=== PATIENT | female | born 1940 | race Caucasian/White ===

== ENCOUNTER 2017-11-07 11:39 | Inpatient (IN) ==
[2017-11-07] MEDS ORDERED: LABETALOL 20 MG/4 ML SYRINGE IV STA ×2 (12:12→14:00)
[2017-11-07 12:23] LABS: Basophils # 0.1 10*3/uL (0.0-0.2); Basophils % 0.8 % (0.0-0.8); Eosinophils # 0.2 10*3/uL (0.0-0.87); Eosinophils % 3.6 % (0.00-10.9); Hematocrit 36.8 VOL% (35.7-47.0); Hemoglobin 12.3 GM/DL (12.0-16.0); Immature Granulocytes % 0.5 %; Immature Granulocytes Absolute 0.03 #; Lymphocytes # 1.8 10*3/uL (1.4-4.0); Lymphocytes % 29.9 % (21.3-54.2); Mean Corpuscular HGB Conc 33.4 GM/DL (32-36); Mean Corpuscular Hemoglobin 32 PG (27-34); Mean Corpuscular Volume 94.4 FL (87-102); Mean Platelet Volume 9.8 FL (9.6-12.0); Monocytes # 0.6 10*3/uL (0.11-0.8); Neutrophils # 3.5 10*3/uL (1.4-7.4); Neutrophils % 56.2 % (38.7-73.9); Platelet Count 231 T/CUMM (130-400); Red Cell Distribution Width 13.2 % (9.3-17.3); White Blood Count 6.1 T/CUMM (4-12)
[2017-11-07 12:31] LABS: PT Patient Result 10.1 SECS
[2017-11-07 12:37] LABS: Apearance,Urine CLEAR (Clear); Bilirubin,Urine Negative (Negative); Blood, Urine Small mg/dL (Negative); Glucose,Urine (UA) Negative (Negative); Ketones,Urine Negative (Negative); Mucus,Urine Occasional /LPF (Occasional); Nitrite,Urine Negative (Negative); Protein,Urine Negative; RBC,Urine 1 /HPF (0-4); Squamous Epithelial Cell,Urine Occasional /HPF (0-10); Urine Color Straw (Yellow); Urine Specific Gravity 1.008 (1.001-1.035); Urine Urobilinogen < 2.0 EU/DL (0.2-1.0); WBC,Urine <1 /HPF (0-6)
[2017-11-07] MEDS ORDERED: LABETALOL 20 MG/4 ML SYRINGE IV ONE ×2 (12:44→14:02)
[2017-11-07 12:52] LABS: Albumin 3.7 G/DL (3.4-5.0); Bilirubin,Total 0.4 MG/DL (0.2-1.0); Calcium 8.8 MG/DL (8.5-10.1); Osmolality,Calculated 274.8 MOS/KG (273-304); Potassium 4.2 MMOL/L (3.5-5.1); Total Protein 7.2 G/DL (6.4-8.3)
[2017-11-07] MEDS ORDERED: ACETAMINOPHEN 500 MG TABLET PO STA (13:15)
[2017-11-07] MEDS ORDERED: ACETAMINOPHEN 500 MG TABLET ONE (13:16)
[2017-11-07] MEDS ORDERED: amLODIPine 5 MG TABLET PO STA (13:41)
[2017-11-07] MEDS ORDERED: amLODIPine 5 MG TABLET ONE (13:45)
[2017-11-07] MEDS ORDERED: ONDANSETRON 4 MG/2 ML VIAL IV PRN (16:32)
[2017-11-07] MEDS ORDERED: ACETAMINOPHEN 325 MG TABLET PO PRN (16:32)
[2017-11-07] MEDS: LISINOPRIL 10 MG TABLET PO SCH (18:50)
[2017-11-07] MEDS ORDERED: cloNIDine 0.1 MG TABLET PO SCH (21:00)
[2017-11-07] MEDS: AZITHROMYCIN INJ 250 MG in SODIUM CHLORIDE 0.9% 150 ML IV SCH (22:04)
[2017-11-07] MEDS: DOCUSATE SODIUM 100 MG CAPSULE PO SCH (22:06)
[2017-11-07] MEDS: traZODone 50 MG TABLET PO PRN (22:54)
[2017-11-08] MEDS: LEVOTHYROXINE 112 MCG TABLET PO SCH (06:14)
[2017-11-08 06:53] LABS: Calcium 8.2 MG/DL (8.5-10.1); Potassium 3.8 MMOL/L (3.5-5.1); Thyroid Stimulating Hormone 0.887 uIU/ml (0.358-3.74)
[2017-11-08] MEDS: PANTOPRAZOLE 40 MG TABLET PO SCH (09:19)
[2017-11-08] MEDS: LISINOPRIL 10 MG TABLET PO SCH (09:19)
[2017-11-08] MEDS: DOCUSATE SODIUM 100 MG CAPSULE PO SCH ×2 (09:19→21:02)
[2017-11-08] MEDS: LORATADINE 10 MG TABLET PO SCH (09:19)
[2017-11-08] MEDS: ASPIRIN EC 81 MG TABLET PO SCH (09:19)
[2017-11-08] MEDS ORDERED: BUTALBITAL/ACETAMIN/CAFFEINE 50-325-40 MG TABLET PO PRN (15:09)
[2017-11-08 16:25] LABS: Folate 14.2 NG/ML (5.4-24.0)
[2017-11-08] MEDS: AZITHROMYCIN INJ 250 MG in SODIUM CHLORIDE 0.9% 150 ML IV SCH (20:58)
[2017-11-08] MEDS: traZODone 50 MG TABLET PO PRN (21:02)
[2017-11-08] MEDS: AMITRIPTYLINE 25 MG TABLET PO SCH (21:02)
[2017-11-09] MEDS: LEVOTHYROXINE 112 MCG TABLET PO SCH (06:45)
[2017-11-09] MEDS: LISINOPRIL 10 MG TABLET PO SCH (09:02)
[2017-11-09] MEDS: LORATADINE 10 MG TABLET PO SCH (09:02)
[2017-11-09] MEDS: DOCUSATE SODIUM 100 MG CAPSULE PO SCH ×2 (09:02→21:50)
[2017-11-09] MEDS: ASPIRIN EC 81 MG TABLET PO SCH (09:02)
[2017-11-09] MEDS: PANTOPRAZOLE 40 MG TABLET PO SCH (09:02)
[2017-11-09] MEDS ORDERED: AZITHROMYCIN INJ 250 MG in SODIUM CHLORIDE 0.9% 250 ML IV SCH (20:00)
[2017-11-09] MEDS: traZODone 50 MG TABLET PO PRN (21:49)
[2017-11-09] MEDS: MEMANTINE 5 MG TABLET PO SCH (21:50)
[2017-11-09] MEDS: AMITRIPTYLINE 25 MG TABLET PO SCH (21:50)
[2017-11-10] MEDS: LEVOTHYROXINE 112 MCG TABLET PO SCH (06:17)
[2017-11-10] MEDS: ASPIRIN EC 81 MG TABLET PO SCH (08:52)
[2017-11-10] MEDS: DOCUSATE SODIUM 100 MG CAPSULE PO SCH (08:52)
[2017-11-10] MEDS: MEMANTINE 5 MG TABLET PO SCH (08:52)
[2017-11-10] MEDS: LISINOPRIL 10 MG TABLET PO SCH (08:53)
[2017-11-10] MEDS: LORATADINE 10 MG TABLET PO SCH (08:53)
[2017-11-10] MEDS: PANTOPRAZOLE 40 MG TABLET PO SCH (08:53)
[2017-11-10 12:05] VITALS: BP 110/51
== END 2017-11-10 13:00 | disposition home or self-care (01) | DRG 69 ==
LOC: N.EDINP 11:39 → N.ED 11:39 → N.EDINP 16:00 → N.5E 16:29
PROVIDERS: ADMIT Internal Medicine; ATTEND Internal Medicine

== ENCOUNTER 2022-11-23 11:47 | Observation (INO) ==
[2022-11-23] MEDS ORDERED: SODIUM CHLORIDE 0.9% 1,000 ML IV STA (12:39)
[2022-11-23 13:20] LABS: Basophils % 0.6 % (0.0-0.8); Eosinophils # 0.2 10*3/uL (0.0-0.87); Eosinophils % 3.7 % (0.00-10.9); Hematocrit 30.8 VOL% (35.7-47.0); Hemoglobin 10.2 GM/DL (12.0-16.0); Immature Granulocytes % 0.3 %; Immature Granulocytes Absolute 0.02 #; Lymphocytes # 1.5 10*3/uL (1.4-4.0); Lymphocytes % 23.8 % (21.3-54.2); Mean Corpuscular HGB Conc 33.1 GM/DL (32-36); Mean Corpuscular Volume 93.3 FL (87-102); Mean Platelet Volume 11.7 FL (9.6-12.0); Monocytes # 0.6 10*3/uL (0.11-0.8); Monocytes % 9.1 % (1.7-12.7); Neutrophils % 62.5 % (38.7-73.9); Platelet Count 177 T/CUMM (130-400); Red Cell Distribution Width 12.7 % (9.3-17.3); White Blood Count 6.3 T/CUMM (4-12)
[2022-11-23 13:27] LABS: Bilirubin,Urine Negative (Negative); Blood, Urine Negative (Negative); Glucose,Urine (UA) Negative (Negative); Ketones,Urine Negative (Negative); Nitrite,Urine Negative (Negative); Protein,Urine Negative (Negative); RBC,Urine <1 /HPF (0-4); Squamous Epithelial Cell,Urine Occasional /HPF (0-10); Urine Appearance Clear (Clear); Urine Color Yellow (Yellow); Urine Urobilinogen 0.2 eU/dL (<2.0); Urine pH 6.5 (4.5-8.0)
[2022-11-23 13:30] LABS: PT Patient Result 10.6 SECS (10.1-12.1); Partial Thromboplastin Time 24.2 SECS (23.7-32.9)
[2022-11-23 13:34] LABS: Barbiturates Screen,Urine Negative (Negative); Benzodiazepines Screen,Urine Negative (Negative); Cannabinoid Screen,Urine Negative (Negative); Opiate Screen,Urine Negative (Negative); Phencyclidine Screen,Urine Negative (Negative)
[2022-11-23 13:38] LABS: Albumin 3.5 G/DL (3.4-5.0); Bilirubin,Total 0.5 MG/DL (0.20-1.00); Calcium 8.7 MG/DL (8.5-10.1); Osmolality,Calculated 256.2 MOS/KG (273-304); Potassium 4.5 MMOL/L (3.5-5.1); Total Protein 6.5 G/DL (6.4-8.2)
[2022-11-23 13:51] LABS: Ovalocytes Slight; Platelet Estimate Normal
[2022-11-23] MEDS ORDERED: LABETALOL 20 MG/4 ML SYRINGE IV STA (13:57)
[2022-11-23] MEDS: SODIUM CHLORIDE 0.9% 1,000 ML IV SCH (14:06)
[2022-11-23] MEDS ORDERED: levETIRAcetam 500 MG/5 ML VIAL IV STA (14:13)
[2022-11-23] MEDS ORDERED: ONDANSETRON 4 MG/2 ML VIAL IV PRN (14:13)
[2022-11-23] MEDS ORDERED: ACETAMINOPHEN 325 MG TABLET PO PRN (14:13)
[2022-11-23 14:28] LABS: Sedimentation Rate-Westergren 31 MM/HR (0-30)
[2022-11-23] MEDS ORDERED: hydrALAZINE 20 MG/1 ML VIAL ONE (15:33)
[2022-11-23] MEDS ORDERED: hydrALAZINE 20 MG/1 ML VIAL IV STA (15:34)
[2022-11-23] MEDS ORDERED: ALPRAZolam 0.25 MG TABLET PO PRN (16:23)
[2022-11-23] MEDS ORDERED: PROMETHAZINE 25 MG/1 ML VIAL IM ONE (17:26)
[2022-11-23] MEDS ORDERED: levETIRAcetam LIQUID 100 MG/ML 30 ML/BOTTLE PO SCH (21:00)
[2022-11-23] MEDS: NEBIVOLOL 5 MG TABLET PO SCH (21:08)
[2022-11-23] MEDS: CITALOPRAM 20 MG TABLET PO SCH (21:08)
[2022-11-23] MEDS: cloNIDine 0.1 MG TABLET PO SCH (21:08)
[2022-11-23] MEDS: DOCUSATE SODIUM 100 MG CAPSULE PO SCH (21:08)
[2022-11-23] MEDS: levETIRAcetam 500 MG TABLET PO SCH (21:08)
[2022-11-23] MEDS: OLMESARTAN 20 MG TABLET PO SCH (21:08)
[2022-11-23] MEDS: PANTOPRAZOLE 40 MG TABLET PO SCH (21:09)
[2022-11-23] MEDS: ASPIRIN EC 81 MG TABLET PO SCH (21:09)
[2022-11-24] MEDS: SODIUM CHLORIDE 0.9% 1,000 ML IV SCH ×4 (03:55→20:00)
[2022-11-24 05:44] LABS: Calcium 7.6 MG/DL (8.5-10.1); Osmolality,Calculated 262.5 MOS/KG (273-304); Potassium 3.4 MMOL/L (3.5-5.1)
[2022-11-24] MEDS: LEVOTHYROXINE 100 MCG TABLET PO SCH (06:25)
[2022-11-24 06:34] LABS: Basophils % 0.3 % (0.0-0.8); Eosinophils # 0.1 10*3/uL (0.0-0.87); Eosinophils % 1.6 % (0.00-10.9); Hematocrit 28.4 VOL% (35.7-47.0); Hemoglobin 9.7 GM/DL (12.0-16.0); Immature Granulocytes % 0.6 %; Immature Granulocytes Absolute 0.04 #; Lymphocytes # 1.6 10*3/uL (1.4-4.0); Lymphocytes % 23.2 % (21.3-54.2); Mean Corpuscular HGB Conc 34.2 GM/DL (32-36); Mean Corpuscular Volume 92.8 FL (87-102); Mean Platelet Volume 10.6 FL (9.6-12.0); Monocytes # 0.6 10*3/uL (0.11-0.8); Monocytes % 9.6 % (1.7-12.7); Neutrophils % 64.7 % (38.7-73.9); Platelet Count 246 T/CUMM (130-400); Red Blood Count 3.06 MC/CUMM (3.8-5.5); Red Cell Distribution Width 13.1 % (9.3-17.3); White Blood Count 6.7 T/CUMM (4-12)
[2022-11-24] MEDS: levETIRAcetam 500 MG TABLET PO SCH ×2 (08:40→21:03)
[2022-11-24] MEDS: PANTOPRAZOLE 40 MG TABLET PO SCH ×2 (08:40→21:03)
[2022-11-24] MEDS: RALOXIFENE 60 MG TABLET PO SCH (08:40)
[2022-11-24] MEDS: DOCUSATE SODIUM 100 MG CAPSULE PO SCH ×2 (08:40→21:03)
[2022-11-24] MEDS: cloNIDine 0.1 MG TABLET PO SCH ×2 (08:40→21:03)
[2022-11-24] MEDS ORDERED: PANTOPRAZOLE 40 MG TABLET PO SCH (09:00)
[2022-11-24] MEDS: POTASSIUM CHLORIDE 20 MEQ TABLET PO PRN ×2 (14:00→16:24)
[2022-11-24] MEDS: NEBIVOLOL 5 MG TABLET PO SCH (21:03)
[2022-11-24] MEDS: ASPIRIN EC 81 MG TABLET PO SCH (21:03)
[2022-11-24] MEDS: CITALOPRAM 20 MG TABLET PO SCH (21:03)
[2022-11-24] MEDS: OLMESARTAN 20 MG TABLET PO SCH (21:03)
[2022-11-25] MEDS: SODIUM CHLORIDE 0.9% 1,000 ML IV SCH ×2 (00:45→09:52)
[2022-11-25] MEDS: LEVOTHYROXINE 100 MCG TABLET PO SCH (05:48)
[2022-11-25 05:55] LABS: Basophils % 0.7 % (0.0-0.8); Eosinophils # 0.4 10*3/uL (0.0-0.87); Eosinophils % 6.7 % (0.00-10.9); Hematocrit 30.2 VOL% (35.7-47.0); Hemoglobin 9.8 GM/DL (12.0-16.0); Immature Granulocytes % 0.4 %; Immature Granulocytes Absolute 0.02 #; Lymphocytes # 1.6 10*3/uL (1.4-4.0); Lymphocytes % 29.9 % (21.3-54.2); Mean Corpuscular HGB Conc 32.5 GM/DL (32-36); Mean Corpuscular Volume 97.7 FL (87-102); Mean Platelet Volume 10.6 FL (9.6-12.0); Monocytes # 0.6 10*3/uL (0.11-0.8); Monocytes % 10.4 % (1.7-12.7); Neutrophils % 51.9 % (38.7-73.9); Platelet Count 234 T/CUMM (130-400); Red Blood Count 3.09 MC/CUMM (3.8-5.5); Red Cell Distribution Width 13.6 % (9.3-17.3); White Blood Count 5.4 T/CUMM (4-12)
[2022-11-25 06:16] LABS: Calcium 8.2 MG/DL (8.5-10.1); Osmolality,Calculated 277.5 MOS/KG (273-304); Potassium 4.5 MMOL/L (3.5-5.1)
[2022-11-25] MEDS: cloNIDine 0.1 MG TABLET PO SCH (08:29)
[2022-11-25] MEDS: RALOXIFENE 60 MG TABLET PO SCH (08:29)
[2022-11-25] MEDS: DOCUSATE SODIUM 100 MG CAPSULE PO SCH (08:29)
[2022-11-25] MEDS: PANTOPRAZOLE 40 MG TABLET PO SCH (08:29)
[2022-11-25] MEDS: levETIRAcetam 500 MG TABLET PO SCH (08:29)
[2022-11-25 12:35] VITALS: BP 186/77
== END 2022-11-25 16:20 | disposition home health service (06) ==
LOC: N.ED 11:47 → N.EDINP 11:47 → N.2E 16:10
PROVIDERS: ADMIT Internal Medicine; ATTEND Internal Medicine